=== PATIENT | male | born 1950 | race Caucasian/White ===

== ENCOUNTER 2021-05-23 01:36 | Day surgery (SDC) | payer MEDICARE, SELFPAY ==
[2021-05-11 12:28] VITALS: BMI 26.4
[2021-05-23 09:53] VITALS: BP 153/85; PULSE 75; RESP 18; TEMP 36.2; O2SAT 100; BMI 29.0
[2021-05-23] MEDS: LACTATED RINGERS 1,000 ML 150 ML IV CONT (09:58)
--- NOTE | 2021-05-23 10:06 | P.CONGI_ITS ---
Assessment and Plan Assessment and plan (1) History of colon polyps: Code(s): Z86.010 - Personal history of colonic polyps Status: Acute Assessment and Plan: Patient has a history of colon polyps removed 2016. Plan is for surveillance colonoscopy at this time. Further recommendations will be given after colonoscopy. (2) History of bladder cancer: Code(s): Z85.51 - Personal history of malignant neoplasm of bladder Status: Acute GI Consult Note Consult date/time: 05/23/21 10:06 HPI: Pelon Bass is a 71 year old male Presents for screening colonoscopy. Patient has a prior history of colon polyps. Most recently 2016. His current weight appetite bowel movements are normal. He denies abdominal pain. He has had no bleeding. Past history is significant for bladder cancer a bout 10 years ago for which he sees urology annually. He is felt to have no active disease. Review of Systems Review of Systems: All systems reviewed & are unremarkable except as noted in HPI and below PMFSH Social History Social History Smoking status: Former smoker Tobacco type: cigars Alcohol intake: current Drinks per week: 30 Substance use type: marijuana Meds Home Medications and Allergies Home Medications Medication Instructions Recorded Confirmed Type amlodipine 10 mg PO DAILY 05/11/21 05/23/21 History atorvastatin 20 mg PO DAILY 05/11/21 05/23/21 History carvedilol 12.5 mg PO DAILY 05/11/21 05/23/21 History hydrochlorothiazide 25 mg PO DAILY 05/11/21 05/23/21 History omeprazole 40 mg PO DAILY 05/11/21 05/23/21 History Allergies Allergy/AdvReac Type Severity Reaction Status Date / Time lisinopril Allergy Severe ANGIOEDEMA Verified 05/23/21 09:52 Vital Signs Vital Signs - 24 hr 05/23/21 09:53 Temperature 97.1 F L Pulse Rate 75 Respiratory Rate 18 Blood Pressure 153/85 H Pulse Oximetry 100 Exam Narrative: Physical exam reveals patient be alert. Vital signs stable. HEENT exam is unremarkable. Patient is anicteric. Lungs are clear to aus cultation and percussion. Heart is without murmur or extra sounds. Abdominal exam bowel sounds are present soft nontender with no organomegaly. Digital external rectal exam normal.
--- NOTE | 2021-05-23 11:01 | WPDANESEPPF ---
Anes - Initial Pre Proc Eval Procedure: Operation Date: 05/23/21 11:00 Proposed Procedures p Screening Colonoscopy - Azeem Frankel MD Date/Time: 05/23/21 11:01 Surgeon: Azeem Frankel MD Pre Op Diagnosis: hx of colon polyps Patient Data Age: 71 Gender: M Height: 1.83 m Weight: 97.1 kg Last Vital Signs Temp 97.1 F L 05/23/21 09:53 Pulse 75 05/23/21 09:53 Resp 18 05/23/21 09:53 BP 153/85 H 05/23/21 09:53 Pulse Ox 100 05/23/21 09:53 Allergies Allergy/AdvReac Type Severity Reaction Status Date / Time lisinopril Allergy Severe ANGIOEDEMA Verified 05/23/21 09:52 Home Medications Medication Instructions Recorded Confirmed Type amlodipine 10 mg PO DAILY 05/11/21 05/23/21 History atorvastatin 20 mg PO DAILY 05/11/21 05/23/21 History carvedilol 12.5 mg PO DAILY 05/11/21 05/23/21 History hydrochlorothiazide 25 mg PO DAILY 05/11/21 05/23/21 History omeprazole 40 mg PO DAILY 05/11/21 05/23/21 History Patient hx anesthesia problems: none Family hx anesthesia problems: none Results Review: All pre-operative results and documents have been reviewed as part of the pre-operative evaluation. [facility] Past Medical History Medical History (Updated 05/23/21 @ 10:54 by Moe Hernández MD) History of bladder cancer Hyperlipidemia Hypertension Social History Social History Smoking status: Former smoker Tobacco type: cigars Alcohol intake: current Drinks per week: 30 Substance use type: marijuana Anes - Eval Final PreProcedure Day of Procedure 05/23/21 11:01 Patient weight: obese Heart: regular rate and rhythm Lungs: clear to auscultation Airway: Mallampati scale class II Neurological: alert and oriented Last oral intake: >/= 8 hours ASA classification: III Emergent: no Anesthetic plan: proceed Anesthesia type and monitoring: general GIVS and standard monitoring Results Review: All pre-operative results and documents have been reviewed as part of the pre-operative evaluation. Informed Consent: The patient's anesthetic plan and its attendant risks and benefits were discussed with the patient/family/POA. Questions were solicited and answers provided to the satisfaction of the patient/family/POA.
[2021-05-23 11:47] VITALS: BP 81/42; PULSE 63; RESP 32; O2SAT 96
[2021-05-23 11:57] VITALS: BP 107/65; PULSE 62; RESP 28; O2SAT 98
[2021-05-23 12:07] VITALS: BP 142/83; PULSE 67; RESP 19; O2SAT 100
== END 2021-05-23 12:22 | disposition home or self-care (01) ==
PROVIDERS: PCP Family Medicine; Visit Provider Internal Medicine Gastroenterology
PROC: 0DJD8ZZ Inspection of Lower Intestinal Tract, Via Natural or Artificial Opening Endoscopic (ICD-10-PCS; CPT 45378; principal; 2021-05-23 11:00)
DX: Z12.11 Encounter for screening for malignant neoplasm of colon (principal); K63.5 Polyp of colon; K57.30 Diverticulosis of large intestine without perforation or abscess without bleeding; I10 Essential (primary) hypertension; E78.5 Hyperlipidemia, unspecified; Z85.51 Personal history of malignant neoplasm of bladder; Z87.891 Personal history of nicotine dependence; E66.9 Obesity, unspecified; Z68.29 Body mass index [BMI] 29.0-29.9, adult
CPT/HCPCS: 45385; 88305; J2001; J2704; J7120

== ENCOUNTER 2021-12-08 10:13 | Outpatient (CLI) | payer MEDICARE, SELFPAY ==
--- NOTE | ~2021-12-08 | US_ITS ---
EXAMINATION: US abdomen limited EXAM DATE: 12/08/2021 11:07 INDICATION: Right upper quadrant pain. Elevated white blood cell count. TECHNIQUE: Multiple grayscale and Doppler images of the abdomen right upper quadrant were obtained (b y a technologist who performed the scan) and subsequently reviewed. Comparison is made to prior exami nation from 09/25/2013. FINDINGS: The pancreatic head and body are normal in appearance. The pancreatic tail is not visualized. There is echogenic liver parenchyma, hepatic steatosis. There are no focal liver lesions identified. Th ere is no evidence of intrahepatic biliary duct dilation. Portal venous flow was seen in the hepatop edal, normal direction and has normal Doppler waveform. No right-sided hydronephrosis. Common bile duct measures 5 mm, which is normal. The gallbladder wall is severely thickened at 6 mm, now has mild to moderate distention. There is some gallbladder debris without definite calcified cho lelithiasis. Patient did not determine sonographic Johnston sign, however reportedly patient had just t aken pain medicine. IMPRESSION: 1. Gallbladder wall thickening, could be acute and/or chronic cholecystitis. Gallbladder debris. 2. Hepatic steatosis. I discussed suspected cholecystitis with Andrew Vargas MD at 12/08/2021 12:19 CDT. Reviewed, dictated and finalized at location B. IMPRESSION: 1. Gallbladder wall thickening, could be acute and/or chronic cholecystitis. G allbladder debris. 2. Hepatic steatosis. I discussed suspected cholecystitis with Andrew Vargas MD at 12/08/2021 12:19 CDT.
== END 2021-12-08 10:14 | disposition home or self-care (01) ==
LOC: ANHIMG 10:17
PROVIDERS: PCP Family Medicine; Visit Provider Family Medicine
DX: R10.11 Right upper quadrant pain (principal); K76.0 Fatty (change of) liver, not elsewhere classified
CPT/HCPCS: 76705

== ENCOUNTER 2021-12-14 10:24 | Outpatient (CLI) | payer MEDICARE, SELFPAY ==
[2021-12-14 10:53] LABS: Hematocrit 38.4 % (42.0-52.0); Hemoglobin 13.8 g/dL (14.0-18.0); Mean Corpuscular HGB Conc 35.9 g/dl (32-36); Mean Corpuscular Hemoglobin 33.8 pg (26-34); Mean Corpuscular Volume 94.1 fl (80-100); Platelet Count Result 512 k/mm3 (150-375); Red Blood Count 4.08 M/mm3 (4.6-6.20); Red Cell Distribution Width 12.4 % (11.5-14.5); White Blood Count 14.4 K/mm3 (4.5-10.0)
[2021-12-14 10:59] LABS: Alanine Aminotransferase 139 U/L (4-50); Albumin Level 4.4 g/dL (3.5-5.1); Alkaline Phosphatase 212 U/L (38-126); Anion Gap 9 mmol/L (8-16); Aspartate Amino Transferase 62 U/L (17-59); Bilirubin,Total 0.5 mg/dL (0.2-1.3); Blood Urea Nitrogen 14 mg/dL (9-20); Calcium 9.4 mg/dL (8.4-10.2); Carbon Dioxide 25 mmol/L (22-30); Chloride 101 mmol/L (98-107); Estimated Glomerular Filt Rate > 60; Glucose 109 mg/dL (65-110); Potassium 3.8 mmol/L (3.4-5.0); Sodium 135 mmol/L (137-145)
[2021-12-14 11:13] LABS: Band Neutrophils Percent 2 % (0-6); Eosinophils Absolute Manual 0.14 K/mm3 (0.02-0.5); Eosinophils Percent Manual 1 % (0-4); Lymphocytes Absolute Manual 8.35 K/mm3 (1.1-4.5); Monocytes Absolute Manual 0.57 K/mm3 (0.1-0.90); Monocytes Percent Manual 4 % (3-9); Neutrophils Absolute Manual 5.32 K/mm3 (1.3-6.7); Neutrophils Percent Manual 35 % (46-73); Total Cells Counted 100
[2021-12-14 11:14] LABS: Platelet Estimate Increased (Adequate)
== END 2021-12-14 10:25 | disposition home or self-care (01) ==
PROVIDERS: PCP Family Medicine; Visit Provider Surgery
DX: K80.00 Calculus of gallbladder with acute cholecystitis without obstruction (principal)
CPT/HCPCS: 36415; 80053; 85025

== ENCOUNTER 2022-01-15 02:40 | Day surgery (SDC) | payer MEDICARE, SELFPAY ==
[2022-01-11 14:21] VITALS: BMI 27.3
--- NOTE | 2022-01-11 14:40 | PC.NURSE ---
Addendum entered by Marilyn Terry RN 01/11/22 14:51: PT INSTRUCTED TO HIBICLENS SHOWER MORNING OF SURGERY, HE RELAYS UNDERSTANDING. Original Note: Report to the Outpatient Waiting Room, entrance under the green pavilion located off [facility], at time _10:00AM on date __01/15/22 . OR Time: __12:00PM . - You and your visitor will be asked a series of questions to screen for COVID 19 for your protection. - Only one visitor is allowed at this time. - The patient visitor is requested to leave or wait in car when not with patient. - A mask is required within the hospital. Patients may have clear liquids (water, carbonated beverages, clear teas, apple juice) until 3 hours prior to surgery with a maximum of 20 ounces. - No food from midnight until time of surgery - Infants may have breast milk until 4 hours before surgery, formula 6 hours prior to surgery. - Children will be allowed to drink immediately following surgery. If applicable, please bring a bottle or sippy cup to assist with drinking. Juice, water, soda, and popsicles are readily available. For infants on formula, please bring formula the day of surgery. Pacifiers are allowed. Take the following medications with a SIP of water the morning of surgery: ___AMLODIPINE, CARVEDILOL Medications to discontinue per physician HOLD ALL VITAMINS/SUPPLEMENTS 3 DAYS PRE-OP-LAST DOSE 01/11/22. (OK TO CONTINUE ASPIRIN 81MG PER DR TURNER) Please no make-up, nail english, hairspray, perfume, deodorant, or body powder the day of surgery. No jewelry (including any body piercings) or valuables the day of surgery, leave them at home. Please take a shower or bath the night before, or the morning of, surgery with an antibacterial soap. Wear comfortable, loose fitting clothing. Children are encouraged to wear pajamas. - Jewelry must be removed prior to entering the operating room. Rings and piercings that are not removed may be cut off. - The hospital will not accept responsibility for valuables. - Please leave all valuables, including medications, at home the day of surgery. If you are going home after surgery, a licensed medical van driver must drive you home. - NO public transportation without another adult. - We recommend that an adult stay with you for 24 hours following discharge. - We also recommend that you do not drive, make important decision, drink alcoholic beverages, or take any drugs that were not prescribed by your health care provider for at least 24 hours after your discharge time. For Pediatric surgeries, we recommend two adults accompany the child home (only one inside the building at this time). Follow any additional instructions given to you from your surgeon. If you or anyone in your household have experienced Covid symptoms in the past week, please notify your surgeon or the nurse liaison at the phone number below for possible testing. Telephone instructions given to ____PATIENT and asked if any additional questions and then verbalized understanding. Patient advised to call surgeon office or pre surgery nurse liaison [phone] if any additional questions.
[2022-01-15] VITALS (8 sets, daily range): BP systolic 102–132; BP diastolic 60–68; PULSE 59–72; RESP 12–20; TEMP 36.1–36.6; O2SAT 95–100
--- NOTE | 2022-01-15 06:50 | ECG_ITS ---
Measurements Intervals [place] Rate: 65 P: 59 HI: 188 QRS: -3 QRSD: 91 T: 29 QT: 409 QTc: 425 Interpretive Statements SINUS RHYTHM NORMAL ECG Electronically Signed On 01-15-2022 12:40:10 CDT by Hunter Nixon D.O.
[2022-01-15] MEDS: ACETAMINOPHEN 500 MG TABLET 1000 MG PO (10:45)
[2022-01-15] MEDS: LACTATED RINGERS 1,000 ML 30 ML IV CONT ×2 (10:55→13:35)
[2022-01-15 11:11] LABS: Amylase 56 U/L (30-110)
--- NOTE | 2022-01-15 11:16 | WPDANESEPPF ---
Anes - Initial Pre Proc Eval Procedure: Operation Date: 01/15/22 12:00 Proposed Procedures p Laparoscopic Cholecystectomy, Possible Open - Frederick Valentine DO Date/Time: 01/15/22 11:16 Surgeon: Frederick Valentine DO Pre Op Diagnosis: Acute Calculous Cholecystitis Patient Data Age: 71 Gender: M Height: 1.8 m Weight: 89 kg Allergies Allergy/AdvReac Type Severity Reaction Status Date / Time lisinopril Allergy Severe ANGIOEDEMA Verified 01/15/22 10:57 Home Medications Medication Instructions Recorded Confirmed Type amlodipine 10 mg PO QAM 05/11/21 01/15/22 History atorvastatin 20 mg PO HS 05/11/21 01/15/22 History carvedilol 12.5 mg PO BID 05/11/21 01/15/22 History hydrochlorothiazide 25 mg PO QAM 05/11/21 01/15/22 History omeprazole 20 mg PO DAILY 05/11/21 01/15/22 History Livaplex 1 tab-cap PO DAILY 01/11/22 01/15/22 History arginine oxoglurate 325 mg PO DAILY 01/11/22 01/15/22 History [L-Arginine(alpha-ketoglutarat)] aspirin [Adult Aspirin EC Low 81 mg PO DAILY 01/11/22 01/15/22 History Strength] milk thistle 175 mg PO DAILY 01/11/22 01/15/22 History tadalafil [Cialis] 5 mg PO DAILY 01/11/22 01/15/22 History triamcinolone acetonide 1 applic TOPICAL BID PRN 01/11/22 01/15/22 History Laboratory Tests 01/15/22 01/15/22 10:38 10:38 Amylase 56 U/L U/L (30-110) Blood Type Pending Antibody Screen Pending Patient hx anesthesia problems: none Family hx anesthesia problems: none Results Review: All pre-operative results and documents have been reviewed as part of the pre-operative evaluation. [facility] Past Medical History Medical History History of bladder cancer Hyperlipidemia Hypertension Kidney stones Surgical History Surgical History H/O hand surgery History of appendectomy History of cataract surgery Status post surgical removal and fulguration of bladder neoplasm Social History Social History Smoking packs per day: 1 Smoking cigarettes per day: 20.0 Years smoked: 12 Smoking pack-years: 12.00 Smoking status: Former smoker Tobacco type: cigarettes Smokeless tobacco user: chewing tobacco Smoking end date: 02/23/85 Additional smoking assessment comments: INTERMITTEN CIGAR SMOKING, QUIT 2020 Alcohol intake: current Drinks per week: 42 Alcohol use details: daily Substance use: never Substance use type: marijuana Living arrangements: with family Additional living arrangements comments: Spiritual care concerns: No Anes - Eval Final PreProcedure Day of Procedure 01/15/22 11:16 Patient weight: overweight Heart: regular rate and rhythm Lungs: clear to auscultation Airway: Mallampati scale class II Neurological: alert and oriented Last oral intake: >/= 8 hours ASA classification: III Emergent: no Anesthetic plan: proceed Anesthesia type and monitoring: general ETT and standard monitoring Results Review: All pre-operative results and documents have been reviewed as part of the pre-operative evaluation. Informed Consent: The patient's anesthetic plan and its attendant risks and benefits were discussed with the patient/family/POA. Questions were solicited and answers provided to the satisfaction of the patient/family/POA.
--- NOTE | 2022-01-15 11:42 | WPDHPUPDATE1 ---
History and Physical Update Update Date/Time: 01/15/22 11:42 History and Physical has been reviewed, including an updated exam of the patient. There are NO changes in the patient's condition. Risks, benefits, and alternatives have been discussed and questions answered. Patient agrees to proceed with procedure.
--- NOTE | 2022-01-15 11:42 | PM.IMHP ---
H&P: HPI History of Present Illness Date/Time: 01/15/22 11:42 Chief Complaint: Cholecystitis Narrative: This is a 71-year-old man who presents for laparoscopic cholecystectomy. He was previously seen in the office for cholecystitis. He reports no changes since last seen in the office. Review of Systems Review of Systems: All systems reviewed & are unremarkable except as noted in HPI and below Constitutional: Constitutional: Denies chills, Denies fever(s), Denies headache(s) and Denies weight loss Eyes: Eyes: Denies change in vision ENT: Denies dizziness, Denies headache(s), Denies neck mass and Denies throat swelling Cardiovascular: Cardiovascular: Denies chest pain, Denies lightheadedness and Denies dyspnea Respiratory: Respiratory: Denies cough, Denies dyspnea and Denies wheezing Gastrointestinal: Gastrointestinal: Denies abdominal pain, Denies change in bowel habits, Denies nausea and Denies vomiting Genitourinary: Genitourinary: Denies hematuria and Denies dysuria Musculoskeletal: Musculoskeletal: Reports as per HPI Integumentary/Breasts: Skin/Breast: Reports as per HPI Neurologic: Denies dizziness and Denies headache(s) Allergic/Immunologic: Allergic/Immunologic: Denies throat swelling and Denies wheezing PMFSH Past Medical History Medical History History of bladder cancer Hyperlipidemia Hypertension Kidney stones Surgical History Surgical History H/O hand surgery History of appendectomy History of cataract surgery Status post surgical removal and fulguration of bladder neoplasm Social History Social History Smoking packs per day: 1 Smoking cigarettes per day: 20.0 Years smoked: 12 Smoking pack-years: 12.00 Smoking status: Former smoker Tobacco type: cigarettes Smokeless tobacco user: chewing tobacco Smoking end date: 02/23/85 Additional smoking assessment comments: INTERMITTEN CIGAR SMOKING, QUIT 2020 Alcohol intake: current Drinks per week: 42 Alcohol use details: daily Substance use: never Substance use type: marijuana Living arrangements: with family Additional living arrangements comments: Spiritual care concerns: No Meds Home Medications and Allergies Home Medications Medication Instructions Recorded Confirmed Type amlodipine 10 mg PO QAM 05/11/21 01/15/22 History atorvastatin 20 mg PO HS 05/11/21 01/15/22 History carvedilol 12.5 mg PO BID 05/11/21 01/15/22 History hydrochlorothiazide 25 mg PO QAM 05/11/21 01/15/22 History omeprazole 20 mg PO DAILY 05/11/21 01/15/22 History Livaplex 1 tab-cap PO DAILY 01/11/22 01/15/22 History arginine oxoglurate 325 mg PO DAILY 01/11/22 01/15/22 History [L-Arginine(alpha-ketoglutarat)] aspirin [Adult Aspirin EC Low 81 mg PO DAILY 01/11/22 01/15/22 History Strength] milk thistle 175 mg PO DAILY 01/11/22 01/15/22 History tadalafil [Cialis] 5 mg PO DAILY 01/11/22 01/15/22 History triamcinolone acetonide 1 applic TOPICAL BID PRN 01/11/22 01/15/22 History Allergies Allergy/AdvReac Type Severity Reaction Status Date / Time lisinopril Allergy Severe ANGIOEDEMA Verified 01/15/22 10:57 Vital Signs Vital Signs - 24 hr 01/15/22 11:22 Temperature 36.1 C L Pulse Rate 65 Respiratory Rate 16 Blood Pressure 127/67 Pulse Oximetry 99 Exam Const: General: no acute distress and alert Orientation/consciousness: patient oriented x3 HENMT: Head: normocephalic and atraumatic Ears: hearing grossly normal bilaterally General nose exam: Normal nares present Mouth: Yes Normal oral and palatal mucosa present Eyes: Periorbital: periorbital findings normal Sclera: sclerae normal EOM: EOMs intact bilaterally Neck: Neck: normal visual inspection, no lymphadenopathy and trachea midline Chest: Chest palpation & inspection: normal inspectio
[2022-01-15] MEDS: KETOROLAC 15 MG/ML VIAL (*BKC) IV PUSH (12:01)
[2022-01-15] MEDS: ceFAZolin 2 GM/D5W 50 ML 2 GM/50 ML BAG IVPB (12:15)
[2022-01-15] MEDS: BUPIVACAINE HCL 0.25% PF 30 ML VIAL INFILTRATE (13:18)
--- NOTE | 2022-01-15 13:33 | W.PM.PROC2 ---
Procedure Note - Detailed Date of Procedure 01/15/22 Pre-op Diagnosis Acute Calculous Cholecystitis Post-op Diagnosis Same Procedure Performed Laparoscopic Cholecystectomy Surgeon Frederick Valentine, DO Anesthesia General and Local (0.5% bupivacaine) Indications This is a 71-year-old man who presented with right upper quadrant pain that started about 6 weeks ago. He was having a pain for about a week and then had outpatient imaging and labs done by his PCP. He was found have evidence of an elevated white blood count and gallbladder wall thickening consistent with acute calculous cholecystitis. Of the time he was seen in the office by me, his symptoms had significantly improved. Decision was made to treat patient with low-fat diet initially to allow inflammation to go down. Decision was then made to proceed with laparoscopic cholecystectomy, possible. Findings Laparoscopic cholecystectomy was performed. The gallbladder still had some gallbladder wall thickening and pericholecystic adhesions. The cystic duct appeared normal in size. The gallbladder was removed and sent to the lab for pathology. Description of Procedure Procedure as well as risks, benefits, and alternatives were discussed with patient. Written consent was obtained and placed in chart prior to procedure. The patient was brought back to surgical suite. Patient was placed in supine position on operating table. Time-out was done to confirm patient and procedure. Patient was then intubated by the anesthesia department. Abdomen was prepped and draped in sterile fashion using chlorhexidine prep. 0.5% bupivacaine with epinephrine was infiltrated at each site of incision. A 5 millimeter incision was made near the umbilicus, and a 5 millimeter Optiview trocar was advanced through the abdominal layers under direct visualization. Once inside the abdominal cavity, carbon dioxide was insufflated to create a pneumoperitoneum. The camera was inserted and the abdomen was inspected. No immediate abnormalities were identified. The patient was placed in reverse Trendelenburg position and rotated slightly to the left. An 11 millimeter incision was made in the subxiphoid region, and an 11 millimeter trocar was inserted under direct visualization. Two 5 millimeter incisions were made in the right upper quadrant, and two 5 millimeter trocars were inserted under direct visualization. The gallbladder was identified and grasped at the fundus and retracted superiorly. It was then grasped at the infundibulum retracted laterally. Careful dissection around the neck of the gallbladder was performed using blunt dissection with a [place] grasper and hook electrocautery. The cystic duct was identified, and a window was created behind it. The cystic artery was also identified and a window was created behind it. The critical view of safety was identified, visualizing the cystic duct running directly into the neck of the gallbladder, and the cystic artery running directly into the wall of the gallbladder. A 5 millimeter clip helpdesk administrator was then used to place 2 clips proximally and 1 clip distally on both the cystic duct and cystic artery. They were then both transected using endoscopic scissors. Once safely away from the adam hepatitis, the gallbladder was dissected free from the liver bed using hook electrocautery. Hemostasis was achieved along the way. The gallbladder was removed completely and then removed through the subxiphoid port. The liver bed was then inspected. Hemostasis appeared adequate, and our clips appeared secure. The area was gently irrigated with sterile saline. No other abnormalities were seen. The patient was flattened out in bed, and 1 final inspection was made around the abdominal cavity. The subxiphoid port was removed, and a [place] Tina cone was used to approximate the fascia with an 0-Vicryl simple interrupted suture. The remaining ports were then removed under direct visualization, th
== END 2022-01-15 15:25 | disposition home or self-care (01) ==
PROVIDERS: PCP Family Medicine; Visit Provider Surgery
PROC: 0FT44ZZ Resection of Gallbladder, Percutaneous Endoscopic Approach (ICD-10-PCS; CPT 47562; principal; 2022-01-15 12:00)
DX: K81.1 Chronic cholecystitis (principal); I10 Essential (primary) hypertension; E78.5 Hyperlipidemia, unspecified; Z87.891 Personal history of nicotine dependence; Z85.51 Personal history of malignant neoplasm of bladder; Z90.49 Acquired absence of other specified parts of digestive tract; Z79.82 Long term (current) use of aspirin; K82.8 Other specified diseases of gallbladder
CPT/HCPCS: 47562; 36415; 82150; 86850; 86900; 86901; 88304; 93005; A9270; J0690; J1100; J1885; J2405; J2704; J2710; J7120

== ENCOUNTER 2024-09-17 01:20 | Day surgery (SDC) | payer MEDICARE, SELFPAY ==
[2024-09-08 08:56] VITALS: BMI 26.4
--- NOTE | 2024-09-16 15:35 | P.PNAN_ITS ---
Anes - Initial Pre Proc Eval Procedure: Operation Date: 09/17/24 08:30 Proposed Procedures p Screening Colonoscopy - John Venegas MD Date/Time: 09/16/24 15:35 Surgeon: John Venegas MD Pre Op Diagnosis: encounter screening malignant neoplasm colon Patient Data Age: 74 Gender: M Height: 1.83 m Weight: 88.5 kg Allergies Allergy/AdvReac Type Severity Reaction Status Date / Time lisinopril Allergy Severe ANGIOEDEMA Verified 09/08/24 08:52 Home Medications ?Medication ?Instructions ?Recorded ?Confirmed ?Type omeprazole 20 mg capsule,delayed 20 mg PO DAILY 05/11/21 09/08/24 History release Livaplex 3 tab-cap PO DAILY 01/11/22 09/08/24 History arginine oxoglurate 350 mg 325 mg PO DAILY 01/11/22 09/08/24 History tablet,extended release (L-Arginine (alpha-ketoglutarate)) aspirin 81 mg tablet,delayed 81 mg PO DAILY 01/11/22 09/08/24 History release milk thistle 175 mg tablet 175 mg PO DAILY 01/11/22 09/08/24 History tadalafil 5 mg tablet (Cialis) 5 mg PO DAILY 01/11/22 09/08/24 History triamcinolone acetonide 0.1 % 1 applic topical BID PRN Skin 01/11/22 09/08/24 History topical cream Irritation cholecalciferol (vitamin D3) 50 50 mcg PO DAILY 10/03/22 09/08/24 History mcg (2,000 unit) capsule vitamin B complex 1 tablet PO DAILY 10/03/22 09/08/24 History finasteride 5 mg tablet 5 mg PO DAILY 04/02/23 09/08/24 History amlodipine 10 mg tablet 10 mg PO QAM #90 tabs 05/08/24 09/08/24 Rx atorvastatin 20 mg tablet 20 mg PO HS #90 tabs 05/08/24 09/08/24 Rx carvedilol 12.5 mg tablet 12.5 mg PO BID #180 tabs 05/08/24 09/08/24 Rx hydrochlorothiazide 25 mg tablet 25 mg PO QAM #90 tabs 05/08/24 09/08/24 Rx Results Review: All pre-operative results and documents have been reviewed as part of the pre- operative evaluation. [facility] Past Medical History Medical History (Updated 09/16/24 @ 15:35 by Ricardo Watters DO) GERD (gastroesophageal reflux disease) Simple chronic bronchitis Alcohol use disorder Nonalcoholic steatohepatitis (HECK) Psoriasis Pure hypercholesterolemia, unspecified Essential (primary) hypertension Palmar fascial fibromatosis [dupuytren] Kidney stones Hypertension History of bladder cancer Surgical History Surgical History Hx laparoscopic cholecystectomy 01/15/22 History of cataract surgery Status post surgical removal and fulguration of bladder neoplasm H/O hand surgery History of appendectomy Family History Family History Mother Hypertension Social History Social History Smoking packs per day: 1 Smoking cigarettes per day: 20.0 Years smoked: 12 Smoking pack-years: 12.00 Smoking status: Former smoker Tobacco type: cigarettes Smokeless tobacco user: chewing tobacco Second hand tobacco smoke exposure: No Smoking end date: 02/23/85 Additional smoking assessment comments: INTERMITTEN CIGAR SMOKING, QUIT 2019 Alcohol intake: current Drinks per week: 28 Alcohol use details: beer Substance use: never Substance use type: does not use Do You Feel Safe in your Home?: Yes Lack of Transportation: No Lack of Food: Never True Current Housing: I Have Housing Concerned About Future Housing: No Difficulty Paying Gas/Electric Bills: No Difficulty Paying for Meds: No Currently Unemployed: No Education: High School Diploma/GED Difficulty w/ Childcare or Family Care: No Living arrangements: with family Additional living arrangements comments: Occupation/Education: retired Gender identity (if verbalized by the patient): Male Sexual Orientation (if Verbalized by the Patient): Straight or Heterosexual Spiritual care concerns: No Anes - Eval Final PreProcedure Day of Procedure 09/16/24 15:35 Results Review: All pre-operative results and documents have been reviewed as part of the pre- operative evaluation. Informed Consent: The patient's anesthetic plan and its attendant risks and benefits were discussed with the patient/family/POA. Questions were solicited and answers provided to the satisfaction of the patient/family/POA.
[2024-09-17 07:24] VITALS: BP 150/86; PULSE 70; RESP 18; TEMP 36.2; O2SAT 98; BMI 26.4
[2024-09-17] MEDS: LACTATED RINGERS 1,000 ML 150 ML IV CONT (07:27)
--- NOTE | 2024-09-17 08:09 | PM.HPGS ---
History of Present Illness History of Present Illness Consent: Risks, benefits, and alternatives have been discussed and questions answered. Patient agrees to proceed with procedure. Chief complaint: encounter screening malignant neoplasm colon Narrative: Pelon Bass is a 74 year old male with colon polyp in 2020 Review of Systems Review of Systems: All systems reviewed & are unremarkable except as noted in HPI and below PMFSH Past Medical History Medical History (Updated 09/16/24 @ 15:35 by Ricardo Watters DO) GERD (gastroesophageal reflux disease) Simple chronic bronchitis Alcohol use disorder Nonalcoholic steatohepatitis (HECK) Psoriasis Pure hypercholesterolemia, unspecified Essential (primary) hypertension Palmar fascial fibromatosis [dupuytren] Kidney stones Hypertension History of bladder cancer Surgical History Surgical History Hx laparoscopic cholecystectomy 01/15/22 History of cataract surgery Status post surgical removal and fulguration of bladder neoplasm H/O hand surgery History of appendectomy Family History Family History Mother Hypertension Social History Social History Smoking packs per day: 1 Smoking cigarettes per day: 20.0 Years smoked: 12 Smoking pack-years: 12.00 Smoking status: Former smoker Tobacco type: cigarettes Smokeless tobacco user: chewing tobacco Second hand tobacco smoke exposure: No Smoking end date: 02/23/85 Additional smoking assessment comments: INTERMITTEN CIGAR SMOKING, QUIT 2019 Alcohol intake: current Drinks per week: 28 Alcohol use details: beer Substance use: never Substance use type: does not use Do You Feel Safe in your Home?: Yes Lack of Transportation: No Lack of Food: Never True Current Housing: I Have Housing Concerned About Future Housing: No Difficulty Paying Gas/Electric Bills: No Difficulty Paying for Meds: No Currently Unemployed: No Education: High School Diploma/GED Difficulty w/ Childcare or Family Care: No Living arrangements: with family Additional living arrangements comments: Occupation/Education: retired Gender identity (if verbalized by the patient): Male Sexual Orientation (if Verbalized by the Patient): Straight or Heterosexual Spiritual care concerns: No Meds Home Medications and Allergies Home Medications ?Medication ?Instructions ?Recorded ?Confirmed ?Type omeprazole 20 mg capsule,delayed 20 mg PO DAILY 05/11/21 09/17/24 History release Livaplex 3 tab-cap PO DAILY 01/11/22 09/17/24 History arginine oxoglurate 350 mg 325 mg PO DAILY 01/11/22 09/17/24 History tablet,extended release (L-Arginine (alpha-ketoglutarate)) aspirin 81 mg tablet,delayed 81 mg PO DAILY 01/11/22 09/17/24 History release milk thistle 175 mg tablet 175 mg PO DAILY 01/11/22 09/17/24 History tadalafil 5 mg tablet (Cialis) 5 mg PO DAILY 01/11/22 09/08/24 History triamcinolone acetonide 0.1 % 1 applic topical BID PRN Skin 01/11/22 09/17/24 History topical cream Irritation cholecalciferol (vitamin D3) 50 50 mcg PO DAILY 10/03/22 09/17/24 History mcg (2,000 unit) capsule vitamin B complex 1 tablet PO DAILY 10/03/22 09/17/24 History finasteride 5 mg tablet 5 mg PO DAILY 04/02/23 09/17/24 History amlodipine 10 mg tablet 10 mg PO QAM #90 tabs 05/08/24 09/17/24 Rx atorvastatin 20 mg tablet 20 mg PO HS #90 tabs 05/08/24 09/17/24 Rx carvedilol 12.5 mg tablet 12.5 mg PO BID #180 tabs 05/08/24 09/17/24 Rx hydrochlorothiazide 25 mg tablet 25 mg PO QAM #90 tabs 05/08/24 09/17/24 Rx Allergies Allergy/AdvReac Type Severity Reaction Status Date / Time lisinopril Allergy Severe ANGIOEDEMA Verified 09/17/24 07:21 Vital Signs Vital Signs - 24 hr 09/17/24 07:24 Temperature 97.2 F L Pulse Rate 70 Respiratory Rate 18 Blood Pressure 150/86 H Pulse Oximetry 98 Exam Const: General: comfortable and no acute distress HENMT: Face/Nose/Sinus: Normal nares present Eyes: General: appearance normal, both eyes and all related structures Neck: Neck: no JVD Resp: Auscultation: clear to auscultation bilaterally Cardio: Rate: regular rate Rhythm: regular rhythm GI: Inspection: non-distended GI Palp: Yes Soft to palpation Skin: General skin exam: normal color Neuro: Speech: normal speech Extrem: General: normal to inspection Psych: Mental Status: mental status grossly normal Assessment and Plan Assessment and plan (1) History of colon polyps: Code(s): Z86.010 - Personal history of colon polyps Status: Acute Assessment and Plan: colonoscopy
[2024-09-17 08:30] VITALS: BP 122/71; PULSE 60; RESP 22; O2SAT 99
[2024-09-17 08:40] VITALS: BP 128/60; PULSE 61; RESP 19; O2SAT 99
[2024-09-17 08:50] VITALS: BP 152/76; PULSE 61; RESP 16; O2SAT 100
== END 2024-09-17 08:58 | disposition home or self-care (01) ==
PROVIDERS: PCP Family Medicine; Visit Provider Internal Medicine Gastroenterology
PROC: 0DJD8ZZ Inspection of Lower Intestinal Tract, Via Natural or Artificial Opening Endoscopic (ICD-10-PCS; CPT 45378; principal; 2024-09-17 08:30)
DX: Z12.11 Encounter for screening for malignant neoplasm of colon (principal); K57.30 Diverticulosis of large intestine without perforation or abscess without bleeding; K63.5 Polyp of colon; K64.8 Other hemorrhoids; Z87.891 Personal history of nicotine dependence
CPT/HCPCS: 45385; 88305; J2003; J2704; J7120